=== PATIENT | male | born 1985 | race Native Hawaiian/Other Pacific Islander ===

== ENCOUNTER 2018-03-21 12:38 | Emergency (ER) | payer SELFPAY ==
[2018-03-21] MEDS ORDERED: NACL 0.9% 1000 ML 1,000 ML IV ONE (16:21)
[2018-03-21 16:56] LABS: Basophils % (Auto) 0.6 % (0.0-1.8); Eosinophils % (Auto) 0.4 % (0.0-4.3); Hematocrit 48.6 % (35.5-45.6); Hemoglobin 16.2 gm/dl (11.8-15.2); Lymphocytes # (Auto) 2.3 K/mm3 (1.2-5.4); Lymphocytes % (Auto) 29.8 % (13.4-35.0); Mean Corpuscular HGB Conc 33 % (32-34); Mean Corpuscular Hemoglobin 28 pg (28-32); Mean Corpuscular Volume 85 fl (84-94); Monocytes # (Auto) 0.6 K/mm3 (0.0-0.8); Monocytes % (Auto) 8.1 % (0.0-7.3); Platelet Count 219 K/mm3 (140-440); Red Cell Distribution Width 14.6 % (13.2-15.2)
[2018-03-21 17:11] LABS: Alanine Aminotransferase 19 units/L (7-56); Albumin 4.5 g/dL (3.9-5); BUN/Creatinine Ratio 21; Blood Urea Nitrogen 15 mg/dL (9-20); Calcium 9.2 mg/dL (8.4-10.2); Hemolysis Index 12
[2018-03-21] MEDS ORDERED: ALUM-MAG HYDROX-SIMETH 200-200-20MG/5ML PO ONE (18:29)
[2018-03-21] MEDS ORDERED: LIDOCAINE VISCOUS 2% PO ONE (18:29)
--- NOTE | 2018-03-21 18:35 | Emergency Department Report ---
ED Abdominal Pain HPI - General Chief Complaint: Abdominal Pain Stated Complaint: CHEST PAIN/LOWER STOMACH ALSO Time Seen by Provider: 03/21/18 17:47 Source: patient Mode of arrival: Ambulatory Limitations: No Limitations - History of Present Illness Initial Comments: Chief complaint, abdominal pain, secondary complaint upper back pain Previously healthy 32-year-old man presents with approximately 2 week history of persistent constant deep aching epigastric discomfort, which never really leads, but has waxing and waning features, worse on an empty stomach, and with moderate relief after meal, but with recurrence after one or 2 hours. He has some burning sensation in the lower portion of his chest, but this is much less then his epigastric discomfort, which is moderate to severe, being 7-8 out of 10 , and not exacerbated by movement, but with aggravation on empty stomach and improved with meals. He reports both increased belching and increased flatus, but bowel movements have been variable, sometimes small formed hard stool balls , and sometimes loose, occasionally watery, but not extremely foul-smelling. There is been no definitive melena, no hematochezia, and no vomiting or hematemesis. Patient has no prior history of similar discomfort. He also has secondary discomfort in his upper back, which is worse with movement , he is not sure whether it related to his stomach, but does not seem to wax or wane associated with meals, and is aggravated by movement. He denies any history of recent injury. Patient is , but has been in [facility] for at least 2 years, works at [employer] at a local [employer], he has not had any known exposures, and no ill contacts. He takes no routine prescribed medications, but he has been self- medicating with omeprazole with each meal for at least 3 months, without any significant improvement. He does not have a local doctor, and has not had formal evaluation for it prior to this visit. Patient does not smoke, does not drink alcohol, does not use drugs recreationally. He has no known drug allergies. - Related Data Previous Rx's Medication Instructions Recorded Last Taken Type Amoxicillin 500 mg PO TID #45 capsule 03/21/18 Unknown Rx Clarithromycin [Biaxin] 500 mg PO BID #30 tab 03/21/18 Unknown Rx HYDROcodone/APAP 5-325 [Sweeny 1 each PO Q6HR PRN #20 tablet 03/21/18 Unknown Rx 5/325] Omeprazole 20 mg PO BID #30 tablet. 03/21/18 Unknown Rx Allergies Allergy/AdvReac Type Severity Reaction Status Date / Time No Known Allergies Allergy Unverified 03/21/18 12:57 ED Review of Systems ROS: Stated complaint: CHEST PAIN/LOWER STOMACH ALSO Other details as noted in HPI Comment: All other systems reviewed and negative Constitutional: no symptoms reported ENT: denies: throat pain Respiratory: denies: cough, shortness of breath, SOB with exertion, wheezing Cardiovascular: denies: chest pain, edema, syncope Endocrine: no symptoms reported Gastrointestinal: abdominal pain (localized to the epigastrium, without significant radiation; mild secondary general abdominal discomfort), nausea ( occasional). denies: vomiting, diarrhea, constipation, hematemesis, melena, hematochezia Genitourinary: denies: urgency, dysuria Musculoskeletal: back pain (upper back, bilaterally around shoulder blades) Skin: denies: rash, lesions Neurological: denies: headache, weakness, paresthesias Psychiatric: denies: anxiety, depression Hematological/Lymphatic: denies: easy bleeding, easy bruising ED Past Medical Hx - Past Medical History Previous Medical History?: No - Surgical History Past Surgical History?: No - Social History Smoking Status: Never Smoker Substance Use Type: None - Medications Home Medications: Home Medications Medication Instructions Recorded Confirmed Last Taken Type Amoxicillin 500 mg PO TID #45 capsule 03/21/18 Unknown Rx Clarithromycin [Biaxin] 500 mg PO BID #30 tab 03/21/18 Unknown Rx HYDROcodone/APAP 5-325 [Sweeny 1 each PO Q6HR PRN #20 tablet 03/21/18 Unknown Rx 5/325] Omeprazole 20 mg PO BID #30 tablet. 03/21/18 Unknown Rx ED Physical Exam - General Limitations: No Limitations General appearance: alert, in no apparent distress - Head Head exam: Present: atraumatic, normocephalic - Eye Eye exam: Present: normal appearance - ENT ENT exam: Present: mucous membranes moist - Neck Neck exam: Present: normal inspection. Absent: tenderness, full ROM - Respiratory Respiratory exam: Present: normal lung sounds bilaterally. Absent: respiratory distress, wheezes, rales, rhonchi, chest wall tenderness, other (no costochondral tenderness) - Cardiovascular Cardiovascular Exam: Present: regular rate, normal heart sounds. Absent: systolic murmur, diastolic murmur - GI/Abdominal GI/Abdominal exam: Present: soft, tenderness (prominent epigastric tenderness, reproducible of patient's discomfort), normal bowel sounds. Absent: distended, guarding, rebound, rigid, mass - Rectal Rectal exam: Present: deferred - Extremities Exam Extremities exam: Present: normal inspection, full ROM. Absent: tenderness - Back Exam Back exam: Present: tenderness (rhomboids, major and minor, bilateral), muscle spasm (rhomboids, bilateral). Absent: CVA tenderness (R), CVA tenderness (L), paraspinal tenderness, vertebral tenderness - Neurological Exam Neurological exam: Present: alert, oriented X3. Absent: motor sensory deficit - Psychiatric Psychiatric exam: Present: normal affect, normal mood - Skin Skin exam: Present: warm, dry, intact ED Course Vital Signs 03/21/18 03/21/18 03/21/18 12:53 17:07 19:18 Temperature 36.9 C 36.8 C Pulse Rate 85 68 Respiratory 16 18 16 Rate Blood Pressure 139/80 143/82 O2 Sat by Pulse 100 97 Oximetry ED Medical Decision Making - Lab Data Result diagrams: 03/21/18 16:41 03/21/18 16:41 - Medical Decision Making Patient has typical symptoms of ulcer disease, either gastric or duodenal, but will require esophagogastroduodenoscopy to confirm this. He has no signs of active bleeding, no melena, blood work is stable, he is not anemic, lipase is normal, he has no significant metabolic abnormalities. He is currently been taking antacids, but without relief, but I will still have patient continue taking antacids, but it should not need more than twice a day dosing for accelerated antacid. I will test him for H. pylori, and will start him on empiric anabolic treatment for H. pylori, we will still need gastroenterology confirmation in any case. Patient will be referred to [place] [facility], with referral telephone number, and patient will be started on standard to dose therapy for 14 days, along with continuation of omeprazole, and additional Pepto-Bismol. Pain medicine will be prescribed as well. Patient advised to avoid NSAIDs. - Differential Diagnosis gastritis, gastric ulcer, peptic ulcer, GI bleed Critical Care Time: No Critical care attestation.: If time is entered above; I have spent that time in minutes in the direct care of this critically ill patient, excluding procedure time. ED Disposition Clinical Impression: Acute gastritis Qualifiers: Gastritis type: unspecified gastritis Gastritis bleeding: without bleeding Qualified Code(s): K29.00 - Acute gastritis without bleeding Disposition: DC-01 TO HOME OR SELFCARE Is pt being admited?: No Does the pt Need Aspirin: No Condition: Stable Instructions: Gastritis (ED) Additional Instructions: We're treating you for acute gastritis, but your symptoms are more typical of ulcer disease and we suspect that this is you're true diagnosis, but this requires endoscopy for definitive confirmation, which is not available here in the emergency department. Gastric or peptic ulcers are most commonly caused by a bacterial infection, by the bacteria Helicobacter pylori We have sent blood for initial testing, and we'll also start you on antibiotics , which is the primary treatment for Helicobacter ulcer disease. Your order fulfillment specialist can follow with the results of this Helicobacter antigen testing You will still need definitive testing, which should be done by specialized diagnostic endoscopy, performed by a order fulfillment specialist. We are referring you to [facility] specialist, at telephone #. You will need to contact the gastroenterology office in the morning to make arrangements for further evaluation by the order fulfillment specialist. They have multiple offices, and you should be able to find a location that is convenient to you. H. pylori gastritis or ulcer disease require several medications to be effective , and they need to be taken for extended period of time, generally 2 weeks. Continuing your omeprazole as antacid portion of treatment, take 20 mg twice daily for the next 2 weeks Take Pepto-Bismol 3 times daily, following directions on the bottle, as this is available [id number]. Amoxicillin, is taken 3 times a day, 500 mg, and take this until the entire course is completed. Clarithromycin, is taken twice daily, 500 mg, and should be taken for the entire 14 day course as well. There are no special dietary restrictions in general, we recommended avoiding foods that irritate your stomach. We are also prescribing hydrocodone for pain, which he may take every 4-6 hours as needed for stomach pain, but do not take this medication while you're working or driving or using heavy machinery. Prescriptions: Amoxicillin 500 mg PO TID #45 capsule Clarithromycin [Biaxin] 500 mg PO BID #30 tab HYDROcodone/APAP 5-325 [Sweeny 5/325] 1 each PO Q6HR PRN #20 tablet PRN Reason: Pain Omeprazole 20 mg PO BID #30 tablet. Referrals: PRIMARY CAREMD [Primary Care Provider] - 3-5 Days SID LEON MD [Staff Physician] - 3-5 Days Forms: Work/School Release Form(ED) Time of Disposition: 20:34
[2018-03-21 19:27] LABS: Bilirubin,Urine NEG (Negative); Blood,Urine NEG (Negative); Color,Urine Yellow (Yellow); Protein,Urine <15 mg/dL mg/dL (Negative); Urobilinogen,Urine < 2.0 mg/dL (<2.0); WBC,Urine < 1.0 /HPF (0.0-6.0)
[2018-03-21 19:31] LABS: RBC,Urine < 1.0 /HPF (0.0-6.0)
[2018-03-21 20:59] VITALS: BP 126/78
== END 2018-03-21 20:57 | disposition home or self-care (01) ==
LOC: EDBD → ED 12:38
DX: K29.00 Acute gastritis without bleeding (principal)
CPT/HCPCS: 36415; 80053; 81001; 85025; 99283